=== PATIENT | male | born 1975 | race Caucasian/White ===

== ENCOUNTER 2020-04-22 21:03 | Emergency (ER) | payer SELFPAY ==
[2020-04-22 22:50] LABS: HEMOGLOBIN 12.4 gm/dl (14.0-17.5); RED BLOOD COUNT 3.95 M/UL (4.20-5.50); WHITE BLOOD COUNT 12.1 K/UL (4.5-11.0)
[2020-04-23] MEDS ORDERED: HYDROCODON-ACE1 EAC4 PO (01:50)
== END 2020-04-23 02:01 | disposition home or self-care (01) ==
LOC: ER1 21:03
PROVIDERS: Emergency Medicine
DX: S70.02XA Contusion of left hip, initial encounter (principal); W22.8XXA Striking against or struck by other objects, initial encounter
CPT/HCPCS: 36415; 73502; 80053; 85025; 85610; 85730; 99284; Q9967